=== PATIENT | male | born 1960 | race Caucasian/White ===

== ENCOUNTER 2017-05-05 14:40 | Emergency (ER) | payer OTHER ==
[~2017-05-05] VITALS: Ht 188 cm; Wt 190.9 kg
[~2017-05-05 14:40] MED LIST: GABA-502 PO; LINE600T2 PO; LISI-567 PO; OMEG500C PO
[2017-05-05 14:58] VITALS: BP 148/85; PULSE 64; RESP 22; O2SAT 98
[2017-05-05 15:31] LABS: BASOPHILS % (AUTO) 0.3 % (0-3); EOSINOPHILS % (AUTO) 0.1 % (0-5); MONOCYTES % (AUTO) 9.4 % (4-12); Mean Corpuscular Hemoglobin 28.1 pg (27.0-35.0); Mean Corpuscular Volume 84.1 fL (81-100); NEUTROPHILS % (AUTO) 76.1 % (40-74); Platelet Count 245 bil/L (150-400)
--- NOTE | 2017-05-05 15:51 | ED.REPORT ---
HPI-Abd Pain M 40 and Over Date of Service May 05, 2017 ED Provider: Salma Hector History of Present Illness: heartburn since 3 am today. took antacids, mylanta, drank a full bottle, tagament, drank chocolate milk, milk and still with burning. Does have stones in gallbladder. Bloody nesha last night. Also got up at 1 am to eat chex mix Nursing Notes Stated Complaint: SEVERE HEARTBURN Chief Complaint: Male Abdominal Pain Nursing Notes Reviewed: Yes Allergies: Coded Allergies: piperacillin (Verified Allergy, Intermediate, Rash, 01/15/16) was on vanco and zosyn tazobactam (Verified Allergy, Intermediate, Rash, 01/15/16) was on vanco and zosyn vancomycin (Verified Allergy, Intermediate, Rash, 01/15/16) was on zosyn as well No Known Allergies (Verified Allergy, Unknown, 01/10/16) Scheduled Gabapentin (Gabapentin) 300 Mg Capsule 900 MG PO TID Linezolid (Zyvox) 600 Mg Tablet 600 MG PO BID Lisinopril (Lisinopril) 20 Mg Tablet 20 MG PO DAILY [place]-3 Fatty Acids (Fish Oil) 500 Mg Capsule.dr 1,000 MG PO DAILY General Time Seen by MD: 15:49 Chief Complaint Abdominal pain Hx Obtained From: Patient Sudden in Onset?: Yes Symptom Duration: Since onset Past Medical History Past Medical History MD like 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 years ago MRSA 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 Reports: Hypertension Past Surgical History denies Smoking History Never Smoker Social History Alcohol Use: "Social" Drug Use: Denies drug use Other Social History: Good social support Occupation lives with , work at [employer] Ambulatory Status Independent Review of Systems Basic Review of Systems Eyes: Vision NL, No discharge Skin: No bruising, No rash, No itch Psychiatric: Normal thought content Physical Exam Initial Vital Signs Vital Signs (First) Date Time Temp Pulse Resp B/P Pulse Ox O2 Delivery O2 Flow Rate FiO2 05/05/17 14:58 36.4 64 22 148/85 98 Room Air Initial VS: Reviewed, Vital signs normal Head / Eyes: Atraumatic, Normocephalic, PERRL ENT: Mucous membranes moist, Conjunctiva normal, No scleral icterus Neck: Supple, Non-tender, Full range of motion Lymphatic: No lymphadenopathy Extremities: Vascular intact, Neuro intact, No swelling, No tenderness Skin: Warm, Dry, No cyanosis Neurologic: Alert, Oriented, Nonfocal Psychiatric: Mood/affect normal, Behavior normal, Normal thought content General/Constitutional: Awake, Alert, No acute distress, Well appearing, Well developed, Well hydrated, Well nourished, Cooperative, Not toxic appearing Appearance / Presentation: Positive: Obese, morbidly Respiratory / Chest: Atraumatic, Breath sounds NL, Breath sounds = bilat, No respiratory distress Cardiovascular: Heart rate NL, Regular rhythm, Heart sounds NL, No gallop Tenderness/Guarding/Rebound: Positive: Tender epigastric Back: Atraumatic, Inspection NL, Full range of motion, Painless range of motion Interpretation & Diagnostics Lab Results Interpretation Result Diagram: 05/05/17 1525 05/05/17 1525 Test 05/05/17 15:25 05/05/17 19:09 White Blood Count 11.6th/mm3 (3.8-10.1) Red Blood Count 5.33mil/mm3 (4.40-5.80) Hemoglobin 15.0g/dL (13.8-17.2) Hematocrit 44.8% (41.0-50.0) Mean Corpuscular Volume 84.1fL (81-100) Mean Corpuscular Hemoglobin 28.1pg (27.0-35.0) Mean Corpuscular Hemoglobin Concent 33.5% (32.0-37.0) Red Cell Distribution Width 14.3% (12.3-15.4) Platelet Count 245bil/L (150-400) Neutrophils (%) (Auto) 76.1% (40-74) Lymphocytes (%) (Auto) 13.9% (14-46) Monocytes (%) (Auto) 9.4% (4-12) Eosinophils (%) (Auto) 0.1% (0-5) Basophils (%) (Auto) 0.3% (0-3) Sodium Level 136mEq/L (134-144) Potassium Level 4.8mEq/L (3.5-5.2) Chloride Level 98mEq/L (97-108) Carbon Dioxide Level 22mmol/L (18-29) Blood Urea Nitrogen 15mg/dL (6-24) Creatinine 0.65mg/dL (0.76-1.27) Estimat Glomerular Filtration Rate 136mL/min (>59) Glucose Level 115mg/dL (60-99) Lactic Acid Level 2.8mmol/L (0.4-2.0) Calcium Level 9.7mg/dL (8.5-10.1) Magnesium Level 2.1mg/dL (1.6-2.6) Total Bilirubin 0.3mg/dL (0.0-1.2) Aspartate Amino Transf (AST/SGOT) 15U/L (0-50) Alanine Aminotransferase (ALT/SGPT) 18U/L (0-44) Alkaline Phosphatase 83U/L (25-150) Troponin T < 0.010ug/L (0.0-0.011) Total Protein 8.0g/dL (6.4-8.4) Albumin 4.5g/dL (3.4-5.0) Lipase 30U/L (13-60) Urine Color Yellow (YELLOW) Urine Appearance Clear (CLEAR,HAZY) Urine pH 6.5 (5.0-8.0) Urine Specific [place] 1.010 (1.003-1.035) Urine Protein Negativemg/dL (NEG,TRACE) Urine Glucose (UA) Negativemg/dL (NEGATIVE) Urine Ketones Negativemg/dL (NEGATIVE) Urine Occult Blood Negative (NEGATIVE) Urine Nitrite Negative (NEGATIVE) Urine Bilirubin Negative (NEGATIVE) Urine Urobilinogen Normalmg/dL (NORMAL) Urine Leukocyte Esterase Negative (NEGATIVE) Urine RBC 0-2/hpf (0-2) Urine WBC 0-5/hpf (0-5) Urine Epithelial Cells None/hpf (NONE-MOD) Urine Crystals None seen (NONE SEEN) Urine Bacteria None/hpf (NONE-FEW) Urine Hyaline Casts None/lpf (NONE) Urine Granular Casts None seen (NONE SEEN) Urine Waxy Casts None seen (NONE SEEN) Urine Red Blood Cell Casts None seen (NONE SEEN) Urine White Blood Cell Casts None seen (NONE SEEN) Urine Mucus None seen (None Seen) Urine Trichomonas None seen (NONE SEEN) Urine Yeast None (NONE SEEN) Urinalysis Comment None Urine Culture Reflexed Not indicated CT Abd / Pelvis Interpretation PROCEDURE: CT ABDOMEN AND PELVIS WITH CONTRAST ([id number]) INDICATIONS: stone in CBD? US indicates TECHNIQUE: After the administration of intravenous contrast, 5 mm thick sections acquired from the diaphragm to the symphysis. 5 mm coronal and sagittal reformats were acquired. For radiation dose reduction, the following was used: automated exposure control, adjustment of mA and/or kV according to patient size. COMPARISON: [facility], US, US ABDOMEN, 05/05/2017, 16:31. [facility], CT, ABD/PELVIS W/CON (PNL), 12/12/2014, 14:15. FINDINGS: Image quality: Excellent. ABDOMEN: Lung bases: Lung bases are clear. Heart size is normal. Solid organs: Liver and spleen are normal in size and enhancement. Gallbladder demonstrates multiple calculi within its lumen.. Biliary system is non dilated. Pancreas enhances normally. No adrenal nodules. Kidneys demonstrate normal size and enhancement, without hydronephrosis. Peritoneum and bowel: Bowel loops demonstrate normal wall thickness and caliber. No free fluid or air. Normal appendix. Nodes and vessels: No retroperitoneal or mesenteric adenopathy by size criteria. Aorta and inferior vena cava are normal in size. Miscellaneous: No ventral hernias. PELVIS: Genitourinary: Bladder wall thickness is normal. Miscellaneous: No inguinal hernias or adenopathy. Bones: No suspicious bony lesions. Grade I isthmic spondylolisthesis at L5-S1 is present. No vertebral body compression fractures. IMPRESSION: 1. No evidence of common bile duct calculus. No biliary ductal dilatation. 2. Normal appendix. 3. Cholelithiasis. 4. No change in grade I isthmic spondylolisthesis at L5-S1. Dictated by: Twin Cochran M.D. on 05/05/2017 at 17:55 Approved by: Twin Cochran M.D. on 05/05/2017 at 17:57 US Focused Biliary TECHNIQUE: Real-time scanning was performed of the abdominal and retroperitoneal organs, with image documentation. COMPARISON: [facility], CT, CT ABD PELVIS W CON, 05/05/2017, 17:43. [facility], CT, ABD/PELVIS W/CON (PNL), 12/12/2014, 14:15. FINDINGS: Liver: Liver is normal in size and homogeneous in echotexture. Gallbladder: Demonstrates multiple calculi within its lumen. No gallbladder wall thickening. Biliary ducts: Intrahepatic bile ducts are non-dilated. Extrahepatic bile duct caliber measures 7 mm. Normal is 6-7 mm or less in diameter, or 10 mm or less post-cholecystectomy. Pancreas: Visualized portions of the pancreas are sonographically normal. Spleen: Spleen is normal in size and homogeneous in echotexture. Kidneys: Kidneys are normal in size and echotexture. Right kidney measures 12 cm long; left kidney measures 14 cm long. No hydronephrosis or nephrolithiasis. No solid masses. Aorta: Visualized aorta is normal in caliber at less than 3 cm. Iliacs: Proximal common iliac arteries are normal in caliber at less than 2.5 cm. IVC: Intrahepatic inferior vena cava is patent. Miscellaneous: No free abdominal fluid. IMPRESSION: 1. Cholelithiasis. 2. No biliary ductal dilatation. No evidence of common bile duct calculus. Dictated by: Twin Cochran M.D. on 05/05/2017 at 17:57 Approved by: Twin Cochran M.D. on 05/05/2017 at 17:58 Re-Eval/Medical Decision Med Decision/Clinical Course 56 year old male presents for evualation of abd /epigastric pain which woke him around 3 am. Has tried antacids with no relief. US shows multiple gallstones but none blocking. CT indicates same finding, nothing else to explain discomfort. Troponin is negative. Patient reporting some decrease in the pain with carafate. Education provided and surgery referal provided. No sign of stone in CBduct. Discharge & Departure Primary Impression: Epigastric pain Disposition: Home Vital Signs - All Vital Signs Date Time Temp Pulse Resp B/P Pulse Ox O2 Delivery O2 Flow Rate FiO2 05/05/17 19:34 86 16 143/69 64 Room Air 05/05/17 17:56 68 18 141/81 98 Room Air 05/05/17 14:58 36.4 64 22 148/85 98 Room Air Patient Instructions: Epigastric Pain (ED), Low Fat Diet (ED) Additional Instructions: Your labs show a mild elevation in white count. Your chemistry is unremarkable. The ultrasound and the CT show stones in the gallbladder but no other explanation for your discomfort. Your troponin is negative more than 12 hours out after the start of your pain. Avoid alcohol, butter, tomato products, all fat of any kind and midnight snacks, peperrmint and or cinnamon. Continue with the carafateand protonix. Can use hydrocodone to help with discomfort. Please make an appointment with general surgery to discuss possible gall bladder removal. I am sorry this is happening. REturn if vomiting, worsening pain or any other concerns. Referrals: Les Harmon MD (PCP) Ezekiel Beatty MD EDSupervising Provider for APC: Shmuel Barraza MD copies to: Ezekiel Beatty MD, Sue ARNP May 05, 2017 15:51
[2017-05-05 15:55] LABS: Magnesium 2.1 mg/dL (1.6-2.6)
[2017-05-05] MEDS ORDERED: LidocaineVisc 2%:Antacid 1:1 10 mL Syringe PO ONE (16:10)
[2017-05-05] MEDS ORDERED: Sucralfate 100 mg/mL 10 mL Suspension PO ONE (16:15)
[2017-05-05] MEDS ORDERED: Pantoprazole 4 mg/mL 10 mL Inj IVPUSH ONE (16:15)
[2017-05-05] MEDS ORDERED: 0.9% Sodium Chloride 1,000 ML IV ONE (17:10)
[2017-05-05 17:56] VITALS: BP 141/81; PULSE 68; RESP 18; O2SAT 98
--- NOTE | 2017-05-05 17:58 | DRSVH ---
PROCEDURE: CT ABDOMEN AND PELVIS WITH CONTRAST ([id number]) INDICATIONS: stone in CBD? US indicates TECHNIQUE: After the administration of intravenous contrast, 5 mm thick sections acquired from the diaphragm to the symphysis. 5 mm coronal and sagittal reformats were acquired. For radiation dose reduction, the following was used: automated exposure control, adjustment of mA and/or kV according to patient siz e. COMPARISON: [facility], US, US ABDOMEN, 05/05/2017, 16:31. [facility], CT, A BD/PELVIS W/CON (PNL), 12/12/2014, 14:15. FINDINGS: Image quality: Excellent. ABDOMEN: Lung bases: Lung bases are clear. Heart size is normal. Solid organs: Liver and spleen are normal in size and enhancement. Gallbladder demonstrates multipl e calculi within its lumen.. Biliary system is non dilated. Pancreas enhances normally. No adrenal nodules. Kidneys demonstrate normal size and enhancement, without hydronephrosis. Peritoneum and bowel: Bowel loops demonstrate normal wall thickness and caliber. No free fluid or a ir. Normal appendix. Nodes and vessels: No retroperitoneal or mesenteric adenopathy by size criteria. Aorta and inferior vena cava are normal in size. Miscellaneous: No ventral hernias. PELVIS: Genitourinary: Bladder wall thickness is normal. Miscellaneous: No inguinal hernias or adenopathy. Bones: No suspicious bony lesions. Grade I isthmic spondylolisthesis at L5-S1 is present. No vertebr al body compression fractures. IMPRESSION: 1. No evidence of common bile duct calculus. No biliary ductal dilatation. 2. Normal appendix. 3. Cholelithiasis. 4. No change in grade I isthmic spondylolisthesis at L5-S1. Dictated by: Twin Cochran M.D. on 05/05/2017 at 17:55 Approved by: Twin Cochran M.D. on 05/05/2017 at 17:57
--- NOTE | 2017-05-05 17:59 | DRSVH ---
PROCEDURE: US ABDOMEN ([id number]) INDICATIONS: ? stone in CBD TECHNIQUE: Real-time scanning was performed of the abdominal and retroperitoneal organs, with image documentatio n. COMPARISON: [facility], CT, CT ABD PELVIS W CON, 05/05/2017, 17:43. [facility], CT, ABD/PELVIS W/CON (PNL), 12/12/2014, 14:15. FINDINGS: Liver: Liver is normal in size and homogeneous in echotexture. Gallbladder: Demonstrates multiple calculi within its lumen. No gallbladder wall thickening. Biliary ducts: Intrahepatic bile ducts are non-dilated. Extrahepatic bile duct caliber measures 7 m m. Normal is 6-7 mm or less in diameter, or 10 mm or less post-cholecystectomy. Pancreas: Visualized portions of the pancreas are sonographically normal. Spleen: Spleen is normal in size and homogeneous in echotexture. Kidneys: Kidneys are normal in size and echotexture. Right kidney measures 12 cm long; left kidney measures 14 cm long. No hydronephrosis or nephrolithiasis. No solid masses. Aorta: Visualized aorta is normal in caliber at less than 3 cm. Iliacs: Proximal common iliac arteries are normal in caliber at less than 2.5 cm. IVC: Intrahepatic inferior vena cava is patent. Miscellaneous: No free abdominal fluid. IMPRESSION: 1. Cholelithiasis. 2. No biliary ductal dilatation. No evidence of common bile duct calculus. Dictated by: Twin Cochran M.D. on 05/05/2017 at 17:57 Approved by: Twin Cochran M.D. on 05/05/2017 at 17:58
[2017-05-05] MEDS ORDERED: HYDROmorphone 0.5 mg/0.5 mL iSecure Syringe IVPUSH ONE (18:40)
[2017-05-05 19:29] LABS: APPEARANCE,URINE CLEAR (CLEAR,HAZY); COLOR,URINE YELLOW (YELLOW); OCCULT BLOOD,URINE NEGATIVE (NEGATIVE); PH,URINE 6.5 (5.0-8.0); UROBILINOGEN,URINE NORMAL (NORMAL)
[2017-05-05 19:34] VITALS: BP 143/69; PULSE 86; RESP 16; O2SAT 64
== END 2017-05-05 19:36 | disposition home or self-care (01) ==
LOC: SED 14:40
DX: R10.13 Epigastric pain (principal); I10 Essential (primary) hypertension; Z88.1 Allergy status to other antibiotic agents
CPT/HCPCS: 36415; 74177; 76700; 80053; 81000; 83605; 83690; 83735; 84484; 85025; 93005; 96361; 96374; 96375; 99285; J1170; J7030; Q9967; S0164